=== PATIENT | female | born 1985 | race Caucasian/White ===

== ENCOUNTER 2022-10-10 18:29 | Emergency (ER) | payer MEDICAID, OTHER ==
[2022-10-10] MEDS ORDERED: diphenhydrAMINE 50 MG/ML INJ (BENADRYL) IVP STA (18:48)
[2022-10-10] MEDS ORDERED: NS IV 1000 ML 1,000 ML IV STA (18:48)
[2022-10-10] MEDS ORDERED: METOCLOPRAMIDE INJ 10 MG/2 ML (REGLAN) IVP STA (18:48)
[2022-10-10] MEDS ORDERED: KETOROLAC 15 MG/ML VIAL IVP STA (18:48)
[2022-10-10] MEDS ORDERED: PANTOPRAZOLE 40 MG (PROTONIX) VIAL IV STA (18:48)
[2022-10-10] MEDS ORDERED: morphine INJ 10 MG/ML 1ML (SYR OR VIAL) IVP STA (18:48)
--- NOTE | 2022-10-10 18:50 | ED Abdominal Pain ---
General Stated Complaint: ABD PAIN, VOMITTING Source of Information: Patient Exam Limitations: Other (pain) History of Present Illness Date Seen by Provider: Oct 10, 2022 Time Seen by Provider: 18:34 Initial Comments 37-year-old female presenting with complaints of abdominal pain and nausea with vomiting since the middle of the night. She has not had any surgeries on her abdomen or pelvis. She denies any different foods for anything to trigger her pain overnight. She had family gone to urgent care or after 6 PM tonight. She reports that they gave her some Zofran and a shot of nausea medicine but it was not helping. She is rolling around on the bed grabbing her abdomen saying that the pain was severe. She complains of pain in the epigastric and right upper quadrant. She states that it is a sharp stabbing pain. She did have a bowel movement today and it was normal. She denies any change in the pain with having a bowel movement. Trying to eat or drink makes the pain worse. She denies pain or burning with urination. She has had decreased urine output during the day since she is not been able to take in very much. She has had chills but no fever. She has a history of depression, anxiety, obesity. Timing/Duration: 12-24 Hours Severity/Quality: Severe, Sharp, Stabbing Location: RUQ, Epigastric Radiation: No Radiation Activities at Onset: Sleeping Modifying Factors: Worsens With Eating, Worsens With Palpation Associated Symptoms: No Back Pain, No Chest Pain, No Diaphoresis; Fever/Chills (chills but no fever); No Fatigue, No Headache, No Heartburn; Nausea/Vomiting; No Rash, No Shortness of Air, No Swelling/Mass in Abdomen, No Syncope, No Weakness Allergies and Home Medications Allergies Coded Allergies: No Known Drug Allergies (Unverified , 10/10/22) Patient Home Medication List Home Medication List Reviewed: Yes Metoclopramide HCl (Metoclopramide HCl) 10 Mg Tablet, 10 MG PO Q6H PRN for NAUSEA/VOMITING Prescribed by: JOSE NOE on 10/10/222120 Pantoprazole Sodium (Pantoprazole Sodium) 40 Mg Tablet.dr, 40 MG PO DAILY Prescribed by: JOSE NOE on 10/10/222120 Review of Systems Review of Systems Constitutional: chills; No fever EENTM: No Symptoms Reported Respiratory: No Symptoms Reported Cardiovascular: No Symptoms Reported Gastrointestinal: See HPI Genitourinary: See HPI Musculoskeletal: no symptoms reported Skin: No rash Psychiatric/Neurological: Anxiety Endocrine: No Symptoms Reported Past Ocxraps-Ewdkls-Btderc Hx Past Medical History Surgery/Hospitalization HX: Depression, anxiety, Obesity Physical Exam Vital Signs Vital Signs - First Documented 10/10/22 18:38 Temp 35.6 Pulse 76 Resp 20 B/P (MAP) 142/87 (105) Pulse Ox 100 O2 Delivery Room Air Capillary Refill : Height/Weight/BMI Height: '" Weight: lbs. oz. kg; BMI Method: General Appearance: moderate distress (rolling around on the bed and grabbing her epigastric area and repeatedly saying that the pain is really bad), obese HEENT: PERRL/EOMI, pharynx normal Neck: non-tender, full range of motion, supple Respiratory: chest non-tender, lungs clear, normal breath sounds, no respiratory distress, no accessory muscle use Cardiovascular: normal peripheral pulses, regular rate, rhythm Gastrointestinal: soft, no pulsatile mass, abnormal bowel sounds (hypoactive); No distended, No guarding, No rebound; tenderness (epigastric and RUQ) Rectal: deferred Extremities: normal range of motion, non-tender, normal capillary refill Back: no CVA tenderness Neurologic/Psychiatric: alert, oriented x 3 Skin: normal color, warm/dry Progress/Results/Core Measures Results/Orders Lab Results Laboratory Tests Test 10/10/22 18:47 10/10/22 18:55 Range/Units White Blood Count 10.7 4.3-11.0 10^3/uL Red Blood Count 5.00 3.80-5.11 10^6/uL Hemoglobin 14.3 11.5-16.0 g/dL Hematocrit 42 35-52 % Mean Corpuscular Volume 84 80-99 fL Mean Corpuscular Hemoglobin 29 25-34 pg Mean Corpuscular Hemoglobin Concent 34 32-36 g/dL Red Cell Distribution Width 13.3 10.0-14.5 % Platelet Count 378 130-400 10^3/uL Mean Platelet Volume 10.2 9.0-12.2 fL Immature Granulocyte % (Auto) 0 % Neutrophils (%) (Auto) 79 H 42-75 % Lymphocytes (%) (Auto) 17 12-44 % Monocytes (%) (Auto) 3 0-12 % Eosinophils (%) (Auto) 1 0-10 % Basophils (%) (Auto) 0 0-10 % Neutrophils # (Auto) 8.4 H 1.8-7.8 10^3/uL Lymphocytes # (Auto) 1.8 1.0-4.0 10^3/uL Monocytes # (Auto) 0.3 0.0-1.0 10^3/uL Eosinophils # (Auto) 0.1 0.0-0.3 10^3/uL Basophils # (Auto) 0.0 0.0-0.1 10^3/uL Immature Granulocyte # (Auto) 0.0 0.0-0.1 10^3/uL Sodium Level 139 135-145 MMOL/L Potassium Level 3.7 3.6-5.0 MMOL/L Chloride Level 104 98-107 MMOL/L Carbon Dioxide Level 21 21-32 MMOL/L Anion Gap 14 5-14 MMOL/L Blood Urea Nitrogen 12 7-18 MG/DL Creatinine 0.70 0.60-1.30 MG/DL Estimat Glomerular Filtration Rate 116 BUN/Creatinine Ratio 17 Glucose Level 132 H 70-105 MG/DL Calcium Level 9.6 8.5-10.1 MG/DL Corrected Calcium 8.5-10.1 MG/DL Total Bilirubin 0.6 0.1-1.0 MG/DL Aspartate Amino Transf (AST/SGOT) 22 5-34 U/L Alanine Aminotransferase (ALT/SGPT) 18 0-55 U/L Alkaline Phosphatase 120 40-136 U/L Total Protein 7.5 6.4-8.2 GM/DL Albumin 4.6 H 3.2-4.5 GM/DL Lipase 21 8-78 U/L Urine Color DARK YELLOW Urine Clarity CLEAR Urine pH 8.5 5-9 Urine Specific [place] 1.020 1.016-1.022 Urine Protein 1+ H NEGATIVE Urine Glucose (UA) NEGATIVE NEGATIVE Urine Ketones 2+ H NEGATIVE Urine Nitrite NEGATIVE NEGATIVE Urine Bilirubin 1+ H NEGATIVE Urine Urobilinogen 0.2 < = 1.0 MG/DL Urine Leukocyte Esterase NEGATIVE NEGATIVE Urine RBC (Auto) 3+ H NEGATIVE Urine RBC 5-10 H /HPF Urine WBC NONE /HPF Urine Squamous Epithelial Cells >50 H /HPF Urine Crystals NONE /LPF Urine Bacteria LARGE H /HPF Urine Casts NONE /LPF Urine Mucus LARGE H /LPF Urine Culture Indicated NO Urine Opiates Screen NEGATIVE NEGATIVE Urine Oxycodone Screen NEGATIVE NEGATIVE Urine Methadone Screen NEGATIVE NEGATIVE Urine Propoxyphene Screen NEGATIVE NEGATIVE Urine Barbiturates Screen NEGATIVE NEGATIVE Ur Tricyclic Antidepressants Screen NEGATIVE NEGATIVE Urine Phencyclidine Screen NEGATIVE NEGATIVE Urine Amphetamines Screen NEGATIVE NEGATIVE Urine Methamphetamines Screen NEGATIVE NEGATIVE Urine Benzodiazepines Screen POSITIVE H NEGATIVE Urine Cocaine Screen NEGATIVE NEGATIVE Urine Cannabinoids Screen POSITIVE H NEGATIVE My Orders Orders - JOSE NOE MD Ua Culture If Indicated (10/10/22 18:38) Drug Screen Stat (Urine) (10/10/22 18:38) Urine Bedside (10/10/22 18:38) Comprehensive Metabolic Panel (10/10/22 18:47) Lipase (10/10/22 18:47) Ed Iv/Invasive Line Start (10/10/22 18:47) Cbc With Automated Diff (10/10/22 18:47) Ct Abdomen/Pelvis W (10/10/22 18:47) Ns Iv 1000 Ml (Sodium Chloride 0.9%) (10/10/22 18:48) Ketorolac Injection (Toradol Injection) (10/10/22 18:48) Morphine Injection (Morphine Injection (10/10/22 18:48) Pantoprazole Injection (Protonix Injecti (10/10/22 18:48) Metoclopramide Injection (Reglan Injecti (10/10/22 18:48) Diphenhydramine Injection (Benadryl Inje (10/10/22 18:48) Iohexol Injection (Omnipaque 350 Mg/Ml 1 (10/10/22 19:00) Received Contrast (Hold Metformin- Contr (10/10/22 19:00) Ns (Ivpb) (Sodium Chloride 0.9% Ivpb Bag (10/10/22 19:00) Rx-Metoclopramide Tab (Rx-Reglan Tab) (10/10/22 21:30) Medications Given in ED Current Medications Medications Dose Ordered Sig/Pam Route Start Time Stop Time Status Last Admin Dose Admin Iohexol 100 ml ONCE ONCE IV 10/10/22 19:00 10/10/22 19:01 DC 10/10/22 19:06 100 ML Sodium Chloride 100 ml ONCE ONCE IV 10/10/22 19:00 10/10/22 19:01 DC 10/10/22 19:07 100 ML Vital Signs/I&O 10/10/22 10/10/22 18:38 21:27 Temp 35.6 Pulse 76 72 Resp 20 18 B/P (MAP) 142/87 (105) 134/70 Pulse Ox 100 97 O2 Delivery Room Air Room Air Progress Progress Note #1: Progress Note Potential diagnosis of cholecystitis, cholelithiasis, peptic ulcer disease, constipation, colitis, diverticulitis, bowel obstruction, pancreatitis. Will obtain IV access and send blood for labs to check CBC, chemistry, lipase. Urinalysis to look for signs of infection, , drug screen. CT scan of the abdomen pelvis with IV contrast to look for acute pathology causing her complaints of severe pain with nausea and vomiting. Ordered normal saline 1 L IV fluid bolus for hydration, Toradol 15 mg IV for pain, morphine 4 mg IV for pain, pantoprazole 40 mg IV for gastritis, Reglan 10 mg IV for nausea and vomiting since she states that the Zofran from urgent care was not helping, Benadryl 25 mg IV to aid the Reglan and help block potential side effects from the Reglan. Progress Note #2: Time: : Progress Note Bedside urine test was negative. CBC shows white count of 10.7 which is at the upper limit of normal. She was 79% neutrophils. Chemistry without acute significant abnormality to account for her complaint of pain with n/v. Basic electrolytes were all stable, normal renal function, normal liver enzymes, normal lipase. Her glucose was slightly elevated to 132. On her urine drug screen she was positive for benzodiazepines and marijuana. Her urinalysis had 1+ protein and bilirubin, 2+ ketones, 3+ red blood cells, greater than 50 squamous epithelial cells. Patient is more calm and able to relax in the room after medications as her pain is doing better and no emesis here in the ED. She was able to go to radiology for CT scan of the abdomen and pelvis with IV contrast. Progress Note #3: Time: Progress Note Although pt had denied any abdominal surgery she has surgical clips in the gallbladder fossa area to indicate cholecystectomy. On my personal interpretation and review I thought she had some inflammation around the pancreas and some dilated small bowel loops but did not see a specific transition point for bowel obstruction. Her appendix was mostly air filled and retrocecal extending up to edge of liver. It appeared to have some inflammation around it. Will see what radiologist interpretation says when that comes across in the EMR. Progress Note #4: Time: 20:08 Progress Note Awaiting radiologist report for CT scan abdomen/pelvis with IV contrast. The system shows the report is dictated but nothing has come across just yet from hospital pharmacist. Patient resting comfortably in room and able to get more history from her now. She states her pain is 0 out of 10 and nausea is gone. She had 1 episode of diarrhea yesterday in the evening. Then today around 330 pm she started having severe abdominal pain and n/v. No further diarrhea. She does not remember eating anything different to cause this. She has had cholecystectomy and several exploratory laparoscopic surgeries to check her ovaries and she reports wanting to get a hysterectomy. With this added history a small bowel obstruction from adhesions is certainly a possibility. IVF are almost all infused. Will have patient stay NPO and keep resting until CT report available from Radiologist. Progress Note #5: Time: 21:35 Progress Note A copy of the dictated report was finally able to be obtained. I reviewed the radiologist report and they felt the appendix and colon looked ok. She had slightly enlarged liver with fatty infiltration along the falciform ligament. No obstruction or pathology to account for her epigastric pain with n/v. I have updated the patient and family about the findings. She continues to have no further pain or nausea and vomiting. This may have been from a stomach virus or something she ate that did not agree with her. She could still have some peptic ulcer disease. Will discharge with nausea medication, Reglan, and Protonix for an acid audio visual collections coordinator. Counseled on follow-up and return precautions. Encouraged to slowly advance her diet to liquids and then bland and soft foods and then regular food if she tolerates it. Check back with the clinic for continued symptoms and return if having worsening symptoms. Advised that I did not see any indication of surgical findings or need to admit to the hospital and feel it is safe to discharge her to home with PRN medicine available. She has some Zofran already from Urgent Care and could take that but will send a few Reglan pills to have available as well if needed for nausea/vomiting. Diagnostic Imaging Diagonstic Imaging: CT Plain Films/CT/US/NM/MRI: abdomen, pelvis Comments [facility] [place] NAME: LIANA GUO [facility] REC#: [id number] PT STATUS: REG ER : 1985 PHYSICIAN: JOSE NOE MD ADMIT DATE: 10/10/22/ER FS Signed Date of Exam:10/10/22 CT ABDOMEN/PELVIS W PROCEDURE: CT abdomen and pelvis with contrast. TECHNIQUE: Multiple contiguous axial images were obtained through the abdomen and pelvis after administration of intravenous contrast. Auto Exposure Controls were utilized during the CT exam to meet ALARA standards for radiation dose reduction. All CT scans use one or more of the following dose optimizing techniques: automated exposure control, MA and/or KvP adjustment based on patient size and exam type or iterative reconstruction. INDICATION: 37-year-old female, abdominal pain, nausea and vomiting. CORRELATION STUDY: None. FINDINGS: LOWER THORAX: Clear. LIVER: Enlarged at 23 cm. No focal lesion. Likely small amount of fatty infiltration along the falciform ligament. GALLBLADDER: Cholecystectomy. SPLEEN: Mildly enlarged, 14 cm. PANCREAS: Unremarkable. ADRENAL GLANDS: Unremarkable. KIDNEYS: Normal configuration. No calcification or obstruction. ABDOMINAL AORTA: Unremarkable, nonaneurysmal. A few shotty aortocaval lymph nodes as well as mesenteric lymph nodes. GASTROINTESTINAL TRACT: Stomach largely decompressed likely accounting for gastric wall thickening. No small bowel obstruction. Colon is largely decompressed with small amount of fluid in the distal colon, could reflect mild diarrheal state. Normal appendix. No abdominal ascites and/or free air. URINARY BLADDER: Decompressed. REPRODUCTIVE: Uterus and adnexa unremarkable. OSSEOUS STRUCTURES: Posterior fusion at L5-S1 level with grade 1 spondylolisthesis. Marked foraminal narrowing. OTHER: None. IMPRESSION: 1. Negative for acute abnormality of the abdomen or pelvis. 2. Hepatosplenomegaly with hepatic steatosis. Dictated by: Dictated on workstation # [id number] Dict: 10/10/221923 Trans: 10/10/222125 [facility] [id number] Interpreted by: HANSA ALVARES DO Electronically signed by: HANSA ALVARES DO 10/10/222125 Reviewed: Reviewed by Me Departure Impression Primary Impression: Epigastric abdominal pain Additional Impression: Nausea and vomiting in adult Disposition: 01 HOME, SELF-CARE Condition: Stable Departure-Patient Inst. Decision time for Depature: 21:19 Referrals: [facility] [place] Patient Instructions: Abdominal Pain, Adult ED, Full Liquid Diet, Gastritis ED, Nausea and Vomiting, Adult ED, Ulcer and Gastritis Diet Add. Discharge Instructions: Try to stay well-hydrated and follow a liquid diet for 24 hours. If you tolerate this okay you could advance to a bland and soft diet. If you are doing okay with that for 24 hours then you can advance back to a more regular diet. Use the nausea medicine to help keep your stomach settled. Take the acid audio visual collections coordinator to help with irritation to the stomach lining. Check back with clinic for continued concerns/problems. Return to the ER if having worsening symptoms or still not able to keep anything down despite the nausea medicine. Scripts Pantoprazole Sodium (Pantoprazole Sodium) 40 Mg Tablet.dr 40 MG PO DAILY for gastritis for 30 Days, #30 TAB 0 Refills Prov: JOSE NOE MD 10/10/22 Metoclopramide HCl (Metoclopramide HCl) 10 Mg Tablet 10 MG PO Q6H PRN for NAUSEA/VOMITING for 3 Days, #12 TAB 0 Refills Prov: JOSE NOE MD 10/10/22 JOSE NOE MD Oct 10, 2022 18:50
[2022-10-10 18:54] LABS: BASOPHILS % (AUTO) 0 % (0-10); EOSINOPHILS # (AUTO) 0.1 10^3/uL (0.0-0.3); EOSINOPHILS % (AUTO) 1 % (0-10); HEMATOCRIT 42 % (35-52); HEMOGLOBIN 14.3 g/dL (11.5-16.0); LYMPHOCYTES # (AUTO) 1.8 10^3/uL (1.0-4.0); LYMPHOCYTES % (AUTO) 17 % (12-44); MEAN CORPUSCULAR HEMOGLOBIN 29 pg (25-34); MEAN CORPUSCULAR HGB CONC 34 g/dL (32-36); MEAN CORPUSCULAR VOLUME 84 fL (80-99); MEAN PLATELET VOLUME 10.2 fL (9.0-12.2); MONOCYTES # (AUTO) 0.3 10^3/uL (0.0-1.0); MONOCYTES % (AUTO) 3 % (0-12); NEUTROPHILS # (AUTO) 8.4 10^3/uL (1.8-7.8); NEUTROPHILS % (AUTO) 79 % (42-75); PLATELET COUNT 378 10^3/uL (130-400); WHITE BLOOD COUNT 10.7 10^3/uL (4.3-11.0)
[2022-10-10 18:59] LABS: CLARITY,URINE CLEAR; GLUCOSE, URINE (UA) NEGATIVE (NEGATIVE); KETONES,URINE 2+ (NEGATIVE); LEUKOCYTE ESTERASE ,URINE NEGATIVE (NEGATIVE); NITRITE,URINE NEGATIVE (NEGATIVE); PH,URINE 8.5 (5-9); PROTEIN,URINE 1+ (NEGATIVE)
[2022-10-10] MEDS ORDERED: IOHEXOL 350 MG/ML 100 ML (OMNIPAQUE 350) VIAL IV ONE (19:00)
[2022-10-10] MEDS ORDERED: NS 100 ML (IVPB) BAG IV ONE (19:00)
[2022-10-10] MEDS ORDERED: HOLD METFORMIN - RECEIVED CONTRAST 20 ML VIAL IV SCH (19:00)
[2022-10-10 19:02] LABS: BACTERIA,URINE LARGE /HPF; BILIRUBIN,URINE 1+ (NEGATIVE); COLOR,URINE DARK YELLOW; SQUAMOUS EPITHELIAL CELL,UR >50 /HPF
[2022-10-10 19:12] LABS: ALANINE AMINOTRANSFERASE 18 U/L (0-55); ALBUMIN 4.6 GM/DL (3.2-4.5); ALKALINE PHOSPHATASE 120 U/L (40-136); BILIRUBIN,TOTAL 0.6 MG/DL (0.1-1.0); BUN/CREATININE RATIO 17; CALCIUM 9.6 MG/DL (8.5-10.1); CARBON DIOXIDE 21 MMOL/L (21-32); CHLORIDE 104 MMOL/L (98-107); GFR ESTIMATED 116; GLUCOSE 132 MG/DL (70-105); LIPASE 21 U/L (8-78); POTASSIUM 3.7 MMOL/L (3.6-5.0); SODIUM 139 MMOL/L (135-145); TOTAL PROTEIN 7.5 GM/DL (6.4-8.2)
[2022-10-10 19:14] LABS: AMPHETAMINE SCREEN, URINE NEGATIVE (NEGATIVE); BENZODIAZEPINES SCREEN URINE POSITIVE (NEGATIVE); CANNABINOID SCREEN, URINE POSITIVE (NEGATIVE); COCAINE SCREEN URINE NEGATIVE (NEGATIVE)
[2022-10-10 19:15] LABS: BARBITURATE SCREEN URINE NEGATIVE (NEGATIVE); METHADONE STAT NEGATIVE (NEGATIVE); OPIATE SCREEN URINE NEGATIVE (NEGATIVE); OXYCODONE STAT NEGATIVE (NEGATIVE); PROPOXYPHENE STAT NEGATIVE (NEGATIVE); TRICYCLIC ANTIDEPRESSANTS SCRE NEGATIVE (NEGATIVE)
[2022-10-10] MEDS ORDERED: MTC10T PO (21:21)
[2022-10-10] MEDS ORDERED: PANT40TA52 PO (21:21)
[2022-10-10 21:27] VITALS: BP 134/70
--- NOTE | 2022-10-10 21:27 | Diagnostic Imaging Report ---
PROCEDURE: CT abdomen and pelvis with contrast. TECHNIQUE: Multiple contiguous axial images were obtained through the abdomen and pelvis after administration of intravenous contrast. Auto Exposure Controls were utilized during the CT exam to meet ALARA standards for radiation dose reduction. All CT scans use one or more of the following dose optimizing techniques: automated exposure control, MA and/or KvP adjustment based on patient size and exam type or iterative reconstruction. INDICATION: 37-year-old female, abdominal pain, nausea and vomiting. CORRELATION STUDY: None. FINDINGS: LOWER THORAX: Clear. LIVER: Enlarged at 23 cm. No focal lesion. Likely small amount of fatty infiltration along the falciform ligament. GALLBLADDER: Cholecystectomy. SPLEEN: Mildly enlarged, 14 cm. PANCREAS: Unremarkable. ADRENAL GLANDS: Unremarkable. KIDNEYS: Normal configuration. No calcification or obstruction. ABDOMINAL AORTA: Unremarkable, nonaneurysmal. A few shotty aortocaval lymph nodes as well as mesenteric lymph nodes. GASTROINTESTINAL TRACT: Stomach largely decompressed likely accounting for gastric wall thickening. No small bowel obstruction. Colon is largely decompressed with small amount of fluid in the distal colon, could reflect mild diarrheal state. Normal appendix. No abdominal ascites and/or free air. URINARY BLADDER: Decompressed. REPRODUCTIVE: Uterus and adnexa unremarkable. OSSEOUS STRUCTURES: Posterior fusion at L5-S1 level with grade 1 spondylolisthesis. Marked foraminal narrowing. OTHER: None. IMPRESSION: 1. Negative for acute abnormality of the abdomen or pelvis. 2. Hepatosplenomegaly with hepatic steatosis. Dictated by: Dictated on workstation # [id number]
[2022-10-10] MEDS ORDERED: RX-METOCLOPRAMIDE 5 MG (REGLAN) TAB PPK#8 PO PRN (21:30)
== END 2022-10-10 21:28 | disposition home or self-care (01) ==
LOC: ER FS 18:31
DX: R10.13 Epigastric pain (principal); R11.2 Nausea with vomiting, unspecified; R10.11 Right upper quadrant pain; E66.9 Obesity, unspecified; Z28.310 Unvaccinated for COVID-19
CPT/HCPCS: 36415; 74177; 80053; 80306; 81000; 83690; 84703; 85025

== ENCOUNTER 2022-11-16 18:58 | Emergency (ER) | payer MEDICAID ==
[~2022-11-16] VITALS: Ht 152.4 cm; Wt 136.0 kg
[~2022-11-16 18:58] MED LIST: MTC10T PO; PANT40TA52 PO
--- NOTE | 2022-11-16 19:25 | ED GU-Female ---
General Stated Complaint: WANTS TO CHECK FOR TUBAL PREG Source: patient History of Present Illness Date Seen by Provider: Nov 16, 2022 Time Seen by Provider: 19:03 Initial Comments 37-year-old female presenting with complaints of positive home test. She had a tubal ligation in 2014 and was told that she could get . She last had menstrual cycle October 10, 2022. She had 1 day of bleeding in the middle of October. Usually her menstrual cycles are heavy at multiple days. She had been having morning sickness type symptoms over the last month. She did a home test yesterday and again today they were both positive. When she went to the [facility] and [place] she states that the nurse practitioner Melany TAMAYO advised her to come to the emergency department here in [place] so that she could be evaluated for tubal pregnan cy. She denies having any current vaginal bleeding or spotting and was not having pelvic pain. She states that she has had some intermittent pain on the right lower quadrant but thought that it was from constipation. Sexual [place] History: less than 2 months ago, single partner Associated Symptoms: abdominal pain (Intermittent right lower quadrant pain in the last 2 or 3 days); No diaphoresis, No dysuria, No fever/chills, No loss of bladder control, No lumps, No mass; nausea/vomiting (Morning sickness type symptoms for the last month); No nocturia, No polyuria, No swelling, No syncope, No urinary frequency Allergies and Home Medications Allergies Coded Allergies: No Known Drug Allergies (Unverified , 10/10/22) Patient Home Medication List Home Medication List Reviewed: Yes Dicyclomine HCl (Dicyclomine HCl) 10 Mg Capsule, 10 MG PO Q6H PRN for abdominal pain/nausea Prescribed by: JOSE NOE on 11/16/221954 Metoclopramide HCl (Metoclopramide HCl) 10 Mg Tablet, 10 MG PO Q6H PRN for NAUSEA/VOMITING Prescribed by: JOSE NOE on 10/10/222120 Ondansetron (Ondansetron Odt) 4 Mg Tab.rapdis, 4 MG PO Q6H PRN for NAUSEA/VOMITING Prescribed by: JOSE NOE on 11/16/221954 Pantoprazole Sodium (Pantoprazole Sodium) 40 Mg Tablet., 40 MG PO DAILY Prescribed by: JOSE NOE on 11/16/221954 Review of Systems Review of Systems Constitutional: No chills, No fever EENTM: no symptoms reported Respiratory: no symptoms reported Cardiovascular: no symptoms reported Gastrointestinal: see HPI Genitourinary: see HPI Musculoskeletal: no symptoms reported Skin: no symptoms reported Psychiatric/Neurological: Anxiety Past Strzgkz-Hjyted-Qedrxf Hx Patient Social History Tobacco Use?: Yes Tobacco type used: Cigarettes Use of E-Cig and/or Vaping dev: No Substance use?: No Alcohol Use?: No Past Medical History Surgery/Hospitalization HX: Depression, anxiety, Obesity, section x3, tubal ligation in 2015, polycystic ovarian syndrome, endometriosis Physical Exam Vital Signs Vital Signs - First Documented 11/16/22 19:30 Temp 36.9 Pulse 82 Resp 20 B/P (MAP) 145/101 (116) Pulse Ox 100 O2 Delivery Room Air Capillary Refill : Height, Weight, BMI Height: '" Weight: lbs. oz. kg; BMI Method: General Appearance: obese, other (anxious) HEENT: PERRL/EOMI Cardiovascular: normal peripheral pulses, regular rate, rhythm Respiratory: chest non-tender, lungs clear, normal breath sounds, no respiratory distress, no accessory muscle use Gastrointestinal: normal bowel sounds, non tender, soft, no pulsatile mass Rectal: deferred Extremities: normal range of motion, non-tender, normal capillary refill Neurologic/Psychiatric: airplane cleaner II-XII nml as tested, alert, oriented x 3 Skin: normal color, warm/dry Progress/Results/Core Measures Suspected Sepsis SIRS Temperature: Pulse: Respiratory Rate: Blood Pressure / Mean: Results/Orders Lab Results Laboratory Tests Test 11/16/22 19:15 Range/Units Human Chorionic Gonadotropin, Quant < 5 <5 MIU/ML My Orders Orders - JOSE NOE MD Hcg,Quantitative (11/16/22 19:17) Rx-Ondansetron Po (Rx-Zofran Po) (11/16/22 20:00) Rx-Dicyclomine Capsule (Rx-Bentyl Capsul (11/16/22 20:00) Medications Given in ED Current Medications Medications Dose Ordered Sig/Pam Route Start Time Stop Time Status Last Admin Dose Admin Dicyclomine HCl 10 mg Q6H PRN PO 11/16/22 20:00 11/16/22 20:47 DC 11/16/22 20:05 10 MG Ondansetron HCl 4 mg Q6H PRN PO 11/16/22 20:00 11/16/22 20:47 DC 11/16/22 20:05 4 MG Vital Signs/I&O 11/16/22 11/16/22 19:30 20:05 Temp 36.9 36.9 Pulse 82 82 Resp 20 20 B/P (MAP) 145/101 (116) 145/101 Pulse Ox 100 100 O2 Delivery Room Air Room Air Capillary Refill : Progress Note #1: Progress Note Potential diagnosis of tubal , ectopic , intrauterine , ovarian tumor, false positive test. As patient was not having any active bleeding or spotting now and not having any pain currently she does not have indication for emergent ultrasound or CT scan without getting the quantitative hCG test back. Will order quantitative hCG and see what her hormone level is. If her HCG level is 2500 or greater then the wildlife biology technician should be able to see if she has ectopic or intrauterine . Advised patient that if it is too low a level they will not be able to see detail to know if she has ectopic or not so will wait to see what the level is tonight and determine if she needs outpatient ultrasound in am or Urgent ultrasound tonight in the [facility] ED. Progress Note #2: Progress Note Quantitative beta-hCG came back at 0 which was < 5 MIU/ML. Reassured patient that she was not so she could not possibly be having an ectopic . She does not need an ultrasound. She could check with pcp about follow up fro possible GI evaluation for her continued nausea/vomiting and intermittent abdominal pain with irregular menses. However, since she has known polycystic ovarian syndrome and had endometriosis that could contribute to her irregular periods and intermittent pain. Will discharge with Zofran ODT for nausea vomiting and Bentyl or dicyclomine for abdominal cramping and pain. She will have Zofran ODT 4 mg p.o. every 6 hours. Nausea vomiting. Dicyclomine is 10 mg p.o. every 6 hours as needed abdominal pain/nausea. Also refilled prescription for pantoprazole 40 mg once a day. Encouraged to check back with the clinic for further GI work-up. Departure Impression Primary Impression: Irregular menses Additional Impression: Nausea and vomiting in adult Disposition: 01 HOME, SELF-CARE Condition: Stable Departure-Patient Inst. Decision time for [place]: 19:53 Referrals: NO,LOCAL PHYSICIAN (PCP/Family) Primary Care Physician Patient Instructions: Absent or Irregular Periods, Nausea and Vomiting, Adult ED Add. Discharge Instructions: Try to stay well treated drink plenty fluids. Use the dissolving nausea tablets to help keep your stomach settled you could drink better. Use the pantoprazole or Protonix to help with acid in the stomach. Take the Bentyl or dicyclomine to help with abdominal pain and cramping. Check with your primary doctor as he may want to refer you for GI testing or endoscopy to look for signs of peptic ulcer disease or reasons that you are having recurrent nausea vomiting. If continued concerns from a gynecology standpoint you could certainly check back with your primary poultry killer about the polycystic ovarian disease and endometriosis as that could be contributing to your irregular periods and intermittent pain. Your blood level test tonight did not indicate any evidence of . Scripts Dicyclomine HCl (Dicyclomine HCl) 10 Mg Capsule 10 MG PO Q6H PRN for abdominal pain/nausea for 10 Days, #40 CAP 0 Refills Prov: JOSE NOE MD 11/16/22 Ondansetron (Ondansetron Odt) 4 Mg Tab.rapdis 4 MG PO Q6H PRN for NAUSEA/VOMITING for 5 Days, #20 TAB 0 Refills Prov: JOSE NOE MD 11/16/22 Pantoprazole Sodium (Pantoprazole Sodium) 40 Mg Tablet.dr 40 MG PO DAILY for gastritis for 30 Days, #30 TAB 0 Refills Prov: JOSE NOE MD 11/16/22 JOSE NOE MD Nov 16, 2022 19:25
[2022-11-16] MEDS ORDERED: PANT40TA52 PO (19:55)
[2022-11-16] MEDS ORDERED: DICY10CA12 PO (19:55)
[2022-11-16] MEDS ORDERED: ONDA4TAB11 PO (19:55)
[2022-11-16] MEDS ORDERED: RX-ONDANSETRON 4 MG ODT (ZOFRAN) PPK #4 PO PRN (20:00)
[2022-11-16] MEDS ORDERED: RX-DICYCLOMINE 10 MG (BENTYL) CAP PPK#4 PO PRN (20:00)
[2022-11-16 20:05] VITALS: BP 145/101
== END 2022-11-16 20:05 | disposition home or self-care (01) ==
LOC: EDUNIT# 18:58 → ER FS 19:01
DX: N92.6 Irregular menstruation, unspecified (principal); R11.2 Nausea with vomiting, unspecified; F17.210 Nicotine dependence, cigarettes, uncomplicated; E66.9 Obesity, unspecified; Z68.43 Body mass index [BMI] 50.0-59.9, adult; Z28.310 Unvaccinated for COVID-19
CPT/HCPCS: 36415; 84702